=== PATIENT | female | born 1965 | race Two or more races ===

== ENCOUNTER → 2016-11-25 | Outpatient (CLI) | payer BC ==
--- NOTE | ~2016-11-25 | MY11 ---
[facility] A Service of [facility] RADIOLOGY TEXT RESULTS PATIENT: LIANE CORREA LOCATION: [facility] : 63 UNIT #: [id number] AGE: [address]: SANTIAGO CASTANON APRN SEX: F ORDER DR: [id number] [facility] [address] [place], [place] [address] [id number] O MR#: [id number] #: [id number] NAME: LIANE CORREA : 1965 SEX: F STUDY DATE/TIME: 11/25/2016 9:31 UNIT: [facility] ROOM: STUDY DESCRIPTION: MY Mammogram Screening Dig [place] Attending Physician: Santiago Castanon Ordering Physician: Cecilio Castanon M.D. Primary Care Physician: Garret Oh M.D. MEDICAL IMAGING REPORT This report is preliminary unless electronic signature is present EXAM Digital screening mammogram 11/25/2016 HISTORY 51-year-old woman baseline mammogram. Positive family history, mother age 72. COMPARISON None. FINDINGS Digital imaging of each breast was completed utilizing screening protocol. Review includes FDA approved CAD device. Breast parenchyma is moderately dense with asymmetrical fibroglandular pattern noted. I see no dominant mass or suspicious mass characteristics. There are no microcalcifications and no architectural deformity. On the left MLO view, there are somewhat prominent axillary lymph nodes partially imaged. These generally reflect reactive nodes. Correlate clinically in this regard. IMPRESSION Negative baseline mammogram. Questionable prominent left axillary lymph nodes partially imaged. Correlate clinically. Annual screening recommended. Patients over the age of 40 are entered into a reminder system with target due date for the next mammogram. A result letter will also be sent to the patient. BIRADS: 1 Negative [facility] A Service of [facility] RADIOLOGY TEXT RESULTS PATIENT: LIANE CORREA LOCATION: [facility] : 63 UNIT #: [id number] AGE: [address]: SANTIAGO CASTANON APRN SEX: F ORDER DR: Dictated by... Lincoln Soto M.D. THIS IS AN ELECTRONICALLY VERIFIED REPORT Lincoln Soto M.D. at 11/25/2016 11:51 AM NADER/sherry TD: 11/25/2016 10:21 JOB #: [id number] MEDICAL IMAGING REPORT Page 1 of 1 COPY
== END | disposition home or self-care (01) ==
LOC: CWCC 09:00
DX: Z12.31 Encounter for screening mammogram for malignant neoplasm of breast (principal); Z80.3 Family history of malignant neoplasm of breast
CPT/HCPCS: G0202